=== PATIENT | female | born 2000 | race Caucasian/White ===

== ENCOUNTER 2023-02-22 07:05 | Day surgery (SDC) | payer BC ==
[2023-02-18 14:14] VITALS: BMI 21.5
[2023-02-22] MEDS ORDERED: Midazolam HCl 2 mg/ml Syrup 5 ml UD Cup ONE (09:07)
[2023-02-22] MEDS ORDERED: Ondansetron PF 4 MG/2 ML Vial ONE (09:13)
[2023-02-22] MEDS ORDERED: PROPOFOL 20 ML ONE (09:13)
[2023-02-22] MEDS ORDERED: Dexamethasone 20 MG/5 ML VIAL ONE (09:13)
[2023-02-22 10:40] LABS: #Basophils 0.1 10x3/uL (0.0-0.2); #Eosinphils 0.1 10x3/uL (0.0-0.5); #Monocytes 0.8 10x3/uL (0.0-1.1); #Neutrophils 3.4 10x3/uL (1.5-8.4); %Basophils 0.9 % (0.0-2.0); %Eosinophils 1.5 % (0.0-6.0); %Lymphocytes 47.4 % (18.0-47.0); %Monocytes 9.7 % (0.0-10.0); %Neutrophils 40.4 % (40.0-75.0); Hematocrit 38.6 % (34.9-44.5); Hemoglobin 12.7 g/dL (12.0-15.5); Mean Corpuscular HGB CONC 32.9 g/dL (32.0-36.0); Mean Corpuscular Hemoglobin 30.5 pg (27.0-33.0); Mean Corpuscular Volume 92.6 fl (81.6-98.3); Mean Platelet Volume 11.9 fl (7.4-10.4); Platelet Count 223 10x3/uL (150-450); RBC Distribution Width 13.1 % (11.5-14.5); Red Blood Cell (RBC) Count 4.17 10x6/uL (3.90-5.03); White Blood Cell (WBC) Count 8.5 10x3/uL (3.5-10.5)
[2023-02-22] MEDS ORDERED: oFLOXacin 0.3% Opth 5 ML BOT ONE (10:55)
[2023-02-22 10:59] LABS: ALT (SGPT) 23 U/L (8-55); AST (SGOT) 32 U/L (5-34); Albumin 4.1 g/dL (3.5-5.0); Alkaline Phosphatase 139 U/L (40-110); Anion Gap 11 mmol/L (10-20); BUN (Urea Nitrogen) 8 mg/dL (7.0-18.7); Bilirubin, Total 0.4 mg/dL (0.2-1.2); Calc. Creatinine Clearance 89 mL/min (70-130); Calcium 9.2 mg/dL (7.8-10.44); Carbon Dioxide 26 mmol/L (22-29); Cardiac Risk 2.6 (Less than 4.5); Chloride 105 mmol/L (98-107); Cholesterol 198 mg/dl (< 200 Desired); Estimated GFR 134; Globulin 3.1 g/dL (2.4-3.5); Glucose 107 mg/dL (70-105); HDL Cholesterol 77 mg/dL (>60 Neg Risk); LDL Cholesterol, Calculated 93 mg/dL; Potassium 4.2 mmol/L (3.5-5.1); Protein, Total 7.2 g/dL (6.0-8.3); Sodium 138 mmol/L (136-145); Triglycerides 138 mg/dL (Less than 150)
[2023-02-22 11:18] LABS: Free T4 (Free Thyroxine) 1.3 ng/dL (0.70-1.48)
[2023-02-22 12:09] LABS: Free T4 (Free Thyroxine) 1.37 ng/dL (0.70-1.48)
[2023-02-22] MEDS ORDERED: Iopamidol 300 61% 100 ML VIAL FS ONE (13:45)
[2023-02-25 14:57] LABS: Thyroid Peroxidase IgG Ab 6.9 IU/mL (<25 Normal)
== END 2023-02-22 12:00 | disposition home or self-care (01) ==
LOC: CSHSDC 07:05
PROVIDERS: ATTEND Otolaryngology Plastic Surgery within the Head & Neck
PROC: 3E1B78Z Irrigation of Ear using Irrigating Substance, Via Natural or Artificial Opening (ICD-10-PCS; principal; 2023-02-22)
PROC: 0WB63ZX Excision of Neck, Percutaneous Approach, Diagnostic (ICD-10-PCS; principal; 2023-02-22)
DX: H61.23 Impacted cerumen, bilateral (principal); H72.91 Unspecified perforation of tympanic membrane, right ear; H65.22 Chronic serous otitis media, left ear; H69.80 Other specified disorders of Eustachian tube, unspecified ear; E04.9 Nontoxic goiter, unspecified; M41.9 Scoliosis, unspecified; I34.1 Nonrheumatic mitral (valve) prolapse; F79 Unspecified intellectual disabilities; R22.1 Localized swelling, mass and lump, neck; Z79.899 Other long term (current) drug therapy
CPT/HCPCS: 70491; 80053; 80061; 83036; 84238; 84439; 84443; 84479; 84481; 85025; 86376; 88305; 93306; J1100; J2405; J2704; Q9967

== ENCOUNTER 2023-04-05 06:07 | Day surgery (SDC) | payer BC ==
[2023-04-02 10:42] VITALS: BMI 21.7
[2023-04-05] MEDS ORDERED: Lidocaine 1% w/Epinephrine 1:100K 20 ML VIAL ONE ×2 (06:16→07:32)
[2023-04-05] MEDS ORDERED: CEFAZOLIN 2 GM VIAL ONE (06:16)
[2023-04-05] MEDS ORDERED: Dexmedetomidine 200 MCG/2 ML VIAL ONE (06:26)
[2023-04-05] MEDS ORDERED: Ondansetron PF 4 MG/2 ML Vial ONE (06:34)
[2023-04-05] MEDS ORDERED: Rocuronium Bromide 10 MG/ML (10ML VIAL) ONE (06:34)
[2023-04-05] MEDS ORDERED: Dexamethasone 20 MG/5 ML VIAL ONE (06:34)
[2023-04-05] MEDS ORDERED: PROPOFOL 20 ML ONE (06:34)
[2023-04-05] MEDS ORDERED: Midazolam HCl 2 mg/2 ml Vial ONE (06:35)
[2023-04-05] MEDS ORDERED: fentaNYL 50 mcg/mL 1 mL Vial ONE (06:35)
[2023-04-05] MEDS ORDERED: Midazolam HCl 2 mg/ml Syrup 5 ml UD Cup ONE ×2 (06:47→06:48)
[2023-04-05] MEDS ORDERED: Ondansetron PF 4 MG/2 ML Vial IVP PRN (08:07)
[2023-04-05] MEDS ORDERED: Acetaminophen 650 MG Suppository PR PRN (08:07)
[2023-04-05] MEDS ORDERED: Acetaminophen W/ Codeine 5 ML UDCUP PO PRN (08:10)
[2023-04-05] MEDS ORDERED: Polyethylene Glycol 3350 17 GM Packet PO SCH (09:00)
== END 2023-04-05 15:30 | disposition home or self-care (01) ==
LOC: CSHSDC 06:07
PROVIDERS: ATTEND Otolaryngology Plastic Surgery within the Head & Neck
PROC: 0GBH0ZZ Excision of Right Thyroid Gland Lobe, Open Approach (ICD-10-PCS; principal; 2023-04-05)
PROC: 0GBG0ZZ Excision of Left Thyroid Gland Lobe, Open Approach (ICD-10-PCS; principal; 2023-04-05)
DX: C73 Malignant neoplasm of thyroid gland (principal); E07.9 Disorder of thyroid, unspecified; M41.9 Scoliosis, unspecified; D64.9 Anemia, unspecified; G47.33 Obstructive sleep apnea (adult) (pediatric); Z79.899 Other long term (current) drug therapy
CPT/HCPCS: 88307; J1100; J2250; J2405; J2704; J3010